=== PATIENT | male | born 1970 | race Caucasian/White ===

== ENCOUNTER 2017-09-20 21:40 | Emergency (ER) | payer MEDICAID | END 2017-09-20 21:52 | disposition home or self-care (01) | LOC: E/R 21:40 | DX: K04.7 Periapical abscess without sinus (principal); Z87.891 Personal history of nicotine dependence | CPT/HCPCS: 99283; Z7502 ==

== ENCOUNTER 2018-12-09 07:38 | Emergency (ER) | payer SELFPAY, MEDICAID ==
[2018-12-09 09:01] LABS: ADD MAN DIFF? NO
[2018-12-09 09:02] LABS: BASOPHILS % 0.3 % (0.0-2.0); HEMATOCRIT 47.8 % (42.0-52.0); LYMPHOCYTES # 1.1 10^3/ul (0.8-2.9); MEAN CORPUSCULAR HEMOGLOBIN 30.3 pg (29.0-33.0); MEAN CORPUSCULAR HGB CONC 33.5 g/dl (32.0-37.0); MEAN CORPUSCULAR VOLUME 90.5 fl (82.0-101.0); MEAN PLATELET VOLUME 10.3 fl (7.4-10.4); MONOCYTE # 0.7 10^3/ul (0.3-0.9); MONOCYTES % 7.3 % (0.0-11.0); NEUTROPHIL # 8.1 10^3/ul (1.6-7.5); NEUTROPHILS % 81.2 % (39.0-77.0); PLATELET COUNT 263 10^3/UL (140-415); RED BLOOD COUNT 5.28 10^6/ul (4.70-6.10); RED CELL DISTRIBUTION WIDTH 12.8 % (11.5-14.5)
[2018-12-09] MEDS: morphine 4 MG/ML VIAL IV (09:11)
[2018-12-09] MEDS: DEXAMETHASONE 10 MG/ML 1 ML INJ IV (09:11)
[2018-12-09] MEDS: ONDANSETRON 4 MG INJ IV (09:11)
[2018-12-09] MEDS: AMPICILLIN/SULB 3 GM/NS (PMX) 100 ML IVPB (09:12)
[2018-12-09 09:20] LABS: ALANINE AMINOTRANSFERASE 35 IU/L (13-69); ALBUMIN 4.5 g/dl (3.3-4.9); ALKALINE PHOSPHATASE 57 IU/L (42-121); ANION GAP 7 (5-13); ASPARTATE AMINO TRANSFERASE 27 IU/L (15-46); BILIRUBIN,INDIRECT 0.9 mg/dl (0-1.1); BILIRUBIN,TOTAL 0.9 mg/dl (0.2-1.3); BLOOD UREA NITROGEN 4 mg/dl (7-20); CALCIUM 9.7 mg/dl (8.4-10.2); CARBON DIOXIDE 28 mmol/L (21-31); CHLORIDE 104 mmol/L (97-110); Estimated GFR > 60 mL/min (>60); GLUCOSE 115 mg/dl (70-220); SODIUM 139 mmol/L (135-144)
[2018-12-09 09:21] LABS: INR 0.87; PROTIME 11.9 Sec (11.9-14.9); PT RATIO 0.9
[2018-12-09 09:22] LABS: PARTIAL THROMBOPLASTIN TIME 25.3 Sec (23.0-35.0)
== END 2018-12-09 11:29 | disposition home or self-care (01) ==
LOC: FTE 07:38 → E/R 11:29
DX: K04.7 Periapical abscess without sinus (principal); F17.210 Nicotine dependence, cigarettes, uncomplicated; L03.211 Cellulitis of face
CPT/HCPCS: 80053; 85025; 85610; 85730; 96374; 96375; 99284-25